=== PATIENT | male | born 1960 ===

== ENCOUNTER 2024-06-01 05:25 | Day surgery (SDC) | payer OTHER ==
[~2024-06-01 05:25] MED LIST: ATORVASTATIN CA10 MG; CHANTIX; CILOSTAZOL50 MG; GLIMEPIRIDE1 M1; OXYBUTYNIN CHLORIDE; TAMS0.4C; ZESTRIL10 M1
[2024-06-01] MEDS ORDERED: CEFTRIAXONE SODIUM 2,000 MG VIAL IV ONE (09:15)
[2024-06-01] MEDS ORDERED: BUPIVACAINE HCL 30 ML VIAL IJ ONE (09:15)
[2024-06-01] MEDS ORDERED: METRONIDAZOLE/SODIUM CHLORIDE 500 MG/100 ML PIGGYBACK IV ONE (09:15)
[2024-06-01] MEDS ORDERED: HEMOSTATIC MATRIX 1 KIT KIT TOP ONE (09:15)
[2024-06-01] MEDS ORDERED: LIDOCAINE HCL 1%/EPINEPHRINE 20ML VIAL IJ ONE (09:15)
[2024-06-01] MEDS ORDERED: HYDROGEN PEROXIDE 118 ML SOLUTION TOP ONE (09:15)
[2024-06-01] MEDS ORDERED: DIBUCAINE 30 GM TUBE RECTAL ONE (09:15)
[2024-06-01] MEDS ORDERED: POVIDONE-IODINE 118 ML BOTT TOP ONE (09:15)
[2024-06-01] MEDS ORDERED: OXYCODONE HCL5 MG PO (09:42)
[2024-06-01] MEDS ORDERED: TAMSULOSIN HCL 0.4 MG CAP PO ONE (09:45)
== END 2024-06-01 13:45 | disposition home or self-care (01) ==
LOC: CIR.AMB 05:25
PROVIDERS: ATTEND Surgery
DX: K60.30 Anal fistula, unspecified (principal)